=== PATIENT | female | born 1990 | race Caucasian/White ===

== ENCOUNTER 2020-08-03 12:07 | Outpatient (CLI) | payer OTHER, SELFPAY ==
[2020-08-07 06:49] LABS: Progesterone 18.8 ng/mL (***)
== END 2020-08-03 12:08 | disposition home or self-care (01) ==
PROVIDERS: Obstetrics & Gynecology Gynecology; PCP Emergency Medicine; Visit Provider Obstetrics & Gynecology
DX: N97.9 Female infertility, unspecified (principal)
CPT/HCPCS: 36415; 84144

== ENCOUNTER 2020-08-14 15:42 | Outpatient (CLI) | payer OTHER, SELFPAY ==
[2020-08-14 17:16] LABS: Beta HCG Quantitative < 2.39 mIU/ML
== END 2020-08-14 15:43 | disposition home or self-care (01) ==
LOC: ANHLAB 15:49
PROVIDERS: PCP Family Medicine; Visit Provider Obstetrics & Gynecology
DX: Z31.41 Encounter for fertility testing (principal)
CPT/HCPCS: 36415; 84702

== ENCOUNTER 2020-08-16 11:36 | Outpatient (CLI) | payer OTHER, SELFPAY ==
--- NOTE | ~2020-08-16 | XR_ITS ---
EXAMINATION: XR hysterosalpingogram INDICATION: Fertility assessment TECHNIQUE: Hysterosalpingogram was performed by Dr. Crow Mayen MD with fluoroscopic guidance. I was present to obtain fluoroscopic images. Fluoroscopy exposure time was 0.3 minutes. The DAP for th is procedure was 2.0 Gycm2. FINDINGS: Hatch Supervisor radiograph demonstrates an unremarkable pelvis. Fluoroscopic images demonstrate a no rmal appearing endometrial cavity which has been cannulated. Upon injection of contrast, both fallop jose tubes opacify and are normal in appearance. There is free spillage bilaterally. Uterus is withou t evidence of synechia. IMPRESSION: Patent fallopian tubes. Reviewed, dictated and finalized at location A. [employer] DRAFTSMAN IMPRESSION: Patent fallopian tubes.
== END 2020-08-16 11:37 | disposition home or self-care (01) ==
PROVIDERS: PCP Family Medicine; Visit Provider Obstetrics & Gynecology
DX: Z31.41 Encounter for fertility testing (principal)
CPT/HCPCS: 58340; 74740; Q9966